=== PATIENT | male | born 1970 | race Caucasian/White ===

== ENCOUNTER 2018-02-01 06:37 | Emergency (ER) | payer MEDICAID ==
[~2018-02-01] VITALS: Ht 172.7 cm; Wt 67.6 kg
[2018-02-01 06:44] VITALS: Ht 172.7 cm; Wt 67.6 kg
[2018-02-01 06:59] VITALS: BP 146/100
== END 2018-02-01 06:59 | disposition home or self-care (01) ==
LOC: ED 06:37
DX: R21 Rash and other nonspecific skin eruption (principal); F11.20 Opioid dependence, uncomplicated